=== PATIENT | female | born 1965 | race Caucasian/White ===

== ENCOUNTER 2019-07-01 10:43 | Emergency (ER) | payer OTHER ==
[~2019-07-01] VITALS: Ht 175.3 cm; Wt 76.2 kg
[2019-07-01] MEDS ORDERED: ONDANSETRON HCL4 M2 PO (13:16)
[2019-07-01] MEDS ORDERED: NORCO 5-325 TA1 EAC1 PO (13:16)
[2019-07-01 13:22] VITALS: BP 97/33
== END 2019-07-01 13:22 | disposition home or self-care (01) ==
LOC: ER 10:43
DX: S22.088A Other fracture of T11-T12 vertebra, initial encounter for closed fracture (principal); V80.010A Animal-rider injured by fall from or being thrown from horse in noncollision accident, initial encounter; Y93.89 Activity, other specified; Y92.89 Other specified places as the place of occurrence of the external cause; Y99.8 Other external cause status